=== PATIENT | male | born 1970 | race Hispanic/Latino ===

== ENCOUNTER → 2017-04-29 | Outpatient (REF) ==
[~2017-04-29] MED LIST: BUPR100T6 PO; COLA50CA3 PO; DIPH25CA PO; FLUO20CA8 PO; GUIATUSS DM PO; LISI5TAB PO; MOM30SS PO; NAPR375T2 PO; PROZ10CA7 PO; SILD20TA PO; TRAZ50TA2 PO; [UNRECOGNIZED DRUG - CODE] EX
--- NOTE | 2017-04-29 21:58 | REP ---
Clinical: Pain and disability. Technique: AP, lateral, coned-down views of the lumbosacral spine. Findings: Alignment and lordosis maintained. No acute fracture / compression injury or subluxation. Early moderate multilevel degenerative changes include marginal spurring with mild endplate sclerosis and minimal disc space narrowing. Impression: Early moderate multilevel degenerative changes suggested. Signed by Roberto Carlos Wilson MD 04/29/2017 09:49 P
--- NOTE | 2017-04-29 22:01 | REP ---
Clinical: Pain and disability. Technique: AP, lateral, bilateral oblique and sunrise views of the right knee. Findings: Advanced tricompartmental osteoarthritic degenerative changes are appreciated. Findings include subchondral sclerosis, marginal osteophytes, subtle medial subluxation of the tibiofemoral joint, joint space narrowing. Advanced changes to the patellofemoral joint are also appreciated including subchondral sclerosis with joint space narrowing marginal osteophytes and a chronic bipartite versus old fracture involving the medial margin of the patella. No acute fracture or dislocation. No obvious effusion. Impression: Advanced tricompartmental osteoarthritic degenerative changes. Signed by Roberto Carlos Wilson MD 04/29/2017 09:53 P
== END ==
LOC: M SMT 10:10
PROVIDERS: ATTEND Internal Medicine
DX: M54.5 Low back pain (principal)